=== PATIENT | female | born 1945 | race Caucasian/White ===

== ENCOUNTER → 2017-01-26 | Outpatient (CLI) | payer MEDICARE, OTHER ==
[~2017-01-26] VITALS: Ht 162.6 cm; Wt 113.4 kg
[~2017-01-26] MED LIST: BIOTIN PO; BIOTIN2500 MCG PO; CANDESARTAN-HC1 EAC1 PO; CARAFATE SU100 MG/ML PO; CARAFATE1 GM PO; CARVEDILOL6.25 MG PO; CHLORTHALIDONE25 MG PO; COREG 3.125M3.125 MG PO; ELIQUIS 5 MG TAB5 MG PO; ELIQUIS5 MG PO; FENOFIBRATE160 MG PO; FLINTSTONES1 EAC1 PO; FLINTSTONES1 EACH PO; GLUCOPHAGE 500500 MG PO; IMDUR ER TAB 3030 MG PO; IRBESARTAN300 MG PO; ISOSORBIDE DINI30 MG PO; KEFLEX500 MG PO; LIPITOR TAB 2020 MG PO; METFORMIN HCL500 M1 PO; MULTAQ400 MG PO; NEXIUM40 MG PO; NITROSTAT 0.40.4 MG SL; PERIDEX15 ML PO; PILOCARPINE HCL5 MG PO; PROTONIX 40 MG40 M1 PO; VIT D3 PO; VITAMIN D31000 UNI1 PO
== END ==
LOC: OPSV 13:40
DX: D50.9 Iron deficiency anemia, unspecified (principal)
CPT/HCPCS: 96365; J1756; J7050

== ENCOUNTER → 2017-02-02 | Outpatient (CLI) | payer MEDICARE, OTHER ==
[~2017-02-02] VITALS: Ht 162.6 cm; Wt 104.3 kg
== END ==
LOC: OPSV 13:42
DX: D50.9 Iron deficiency anemia, unspecified (principal)
CPT/HCPCS: 96365; J1756; J7050

== ENCOUNTER → 2017-03-02 | Outpatient (CLI) | payer MEDICARE, OTHER ==
[~2017-03-02] VITALS: Ht 162.6 cm; Wt 104.3 kg
== END ==
LOC: OPSV 13:37
DX: D50.9 Iron deficiency anemia, unspecified (principal)
CPT/HCPCS: 96365; J1756; J7050

== ENCOUNTER 2017-03-15 16:55 | Inpatient (IN) | payer MEDICARE, OTHER ==
[~2017-03-15] VITALS: Ht 165.1 cm; Wt 107.8 kg
[~2017-03-15 16:55] MED LIST changes: -CARAFATE SU100 MG/ML PO; -FLINTSTONES1 EACH PO; -KEFLEX500 MG PO; -LIPITOR TAB 2020 MG PO; -NITROSTAT 0.40.4 MG SL; -PROTONIX 40 MG40 M1 PO
[2017-03-15 19:13] LABS: HEMOGLOBIN 9.1 gm/dl (12.3-15.3); RED BLOOD COUNT 3.41 M/UL (4.00-5.10); WHITE BLOOD COUNT 4.5 K/UL (4.5-11.0)
[2017-03-15] MEDS ORDERED: BIOTIN2500 MCG PO (20:08)
[2017-03-15] MEDS ORDERED: CARAFATE SU100 MG/ML PO (20:09)
[2017-03-15] MEDS ORDERED: ELIQUIS5 MG PO (20:09)
[2017-03-15] MEDS ORDERED: FLINTSTONES1 EACH PO (20:11)
[2017-03-15] MEDS ORDERED: NITROSTAT 0.40.4 MG SL (20:13)
[2017-03-15] MEDS ORDERED: VITAMIN D31000 UNI1 PO (20:14)
[2017-03-15] MEDS ORDERED: IMDUR ER TAB 3030 MG PO (20:17)
[2017-03-16 03:22] LABS: HEMOGLOBIN 8.4 gm/dl (12.3-15.3); RED BLOOD COUNT 3.2 M/UL (4.00-5.10); WHITE BLOOD COUNT 4.4 K/UL (4.5-11.0)
[2017-03-17 04:52] LABS: HEMOGLOBIN 8.2 gm/dl (12.3-15.3); RED BLOOD COUNT 3.13 M/UL (4.00-5.10); WHITE BLOOD COUNT 4.1 K/UL (4.5-11.0)
[2017-03-18 04:54] LABS: HEMOGLOBIN 10.8 gm/dl (12.3-15.3); RED BLOOD COUNT 3.96 M/UL (4.00-5.10); WHITE BLOOD COUNT 5.7 K/UL (4.5-11.0)
[2017-03-18] MEDS ORDERED: KEFLEX500 MG PO (12:27)
[2017-03-18] MEDS ORDERED: PROTONIX 40 MG40 M1 PO (12:28)
[2017-03-18] MEDS ORDERED: LIPITOR TAB 2020 MG PO (12:29)
== END 2017-03-18 13:36 | disposition home or self-care (01) | DRG 377 ==
LOC: ZEROF 18:22 → MED SURG 4 18:22
PROVIDERS: Internal Medicine Gastroenterology; ADMIT Internal Medicine
PROC: 0DJ08ZZ Inspection of Upper Intestinal Tract, Via Natural or Artificial Opening Endoscopic (ICD-10-PCS; principal; 2017-03-16 18:30)
DX: K57.31 Diverticulosis of large intestine without perforation or abscess with bleeding (principal); I50.31 Acute diastolic (congestive) heart failure; D62 Acute posthemorrhagic anemia; T80.1XXA Vascular complications following infusion, transfusion and therapeutic injection, initial encounter; I48.91 Unspecified atrial fibrillation; K22.70 Barrett's esophagus without dysplasia; E78.5 Hyperlipidemia, unspecified; E55.9 Vitamin D deficiency, unspecified; J30.9 Allergic rhinitis, unspecified; K44.9 Diaphragmatic hernia without obstruction or gangrene; I25.10 Atherosclerotic heart disease of native coronary artery without angina pectoris; E11.65 Type 2 diabetes mellitus with hyperglycemia; E66.01 Morbid (severe) obesity due to excess calories; K59.09 Other constipation; I80.8 Phlebitis and thrombophlebitis of other sites; G89.29 Other chronic pain; R10.13 Epigastric pain; R10.11 Right upper quadrant pain; R10.31 Right lower quadrant pain; Z79.84 Long term (current) use of oral hypoglycemic drugs; Z79.899 Other long term (current) drug therapy; Y83.8 Other surgical procedures as the cause of abnormal reaction of the patient, or of later complication, without mention of misadventure at the time of the procedure; Z91.09 Other allergy status, other than to drugs and biological substances; Z87.891 Personal history of nicotine dependence; Z79.01 Long term (current) use of anticoagulants; Z68.39 Body mass index [BMI] 39.0-39.9, adult
CPT/HCPCS: 36415; 71010; 80048; 80053; 82270; 82272; 85025; 85027; 86850; 86900; 86901; 86920; C9113; J2250; J3010; J7030; J7040; J7050; P9016; Q9962; Q9963

== ENCOUNTER → 2017-03-30 | Outpatient (CLI) | payer MEDICARE, OTHER ==
[~2017-03-30] VITALS: Ht 162.6 cm; Wt 104.3 kg
[~2017-03-30] MED LIST changes: +CARAFATE SU100 MG/ML PO; +FLINTSTONES1 EACH PO; +KEFLEX500 MG PO; +LIPITOR TAB 2020 MG PO; +NITROSTAT 0.40.4 MG SL; +PROTONIX 40 MG40 M1 PO
== END ==
LOC: OPSV 12:58
DX: D50.9 Iron deficiency anemia, unspecified (principal)
CPT/HCPCS: 96365; J1756; J7050

== ENCOUNTER → 2017-05-04 | Outpatient (CLI) | payer MEDICARE, OTHER | LOC: OPSV 12:35 | DX: D50.9 Iron deficiency anemia, unspecified (principal) | CPT/HCPCS: 96365; J1756; J7050 ==

== ENCOUNTER → 2020-12-25 | Outpatient (CLI) | payer MEDICARE, OTHER ==
[~2020-12-25] VITALS: Ht 162.6 cm; Wt 99.3 kg
[~2020-12-25] MED LIST changes: +ATACAND32 MG PO; -CARVEDILOL6.25 MG PO; +MEGA BIOTIN10000 MCG PO; +ROBITUSSIN AC480 ML PO; +SYNTHROID25 MCG PO; +TESSALON PERLE100 MG PO; +VENTOLIN HFA 66.7 GM INH; +VITAMIN D250000 UNIT PO
== END ==
LOC: OPSV 12:39
DX: D50.9 Iron deficiency anemia, unspecified (principal); K90.9 Intestinal malabsorption, unspecified
CPT/HCPCS: 96365; J1756

== ENCOUNTER → 2021-01-03 | Outpatient (CLI) | payer MEDICARE, OTHER ==
[~2021-01-03] VITALS: Ht 162.6 cm; Wt 99.3 kg
== END ==
LOC: OPSV 12:00
DX: D50.9 Iron deficiency anemia, unspecified (principal); K90.9 Intestinal malabsorption, unspecified
CPT/HCPCS: 96365; J1756

== ENCOUNTER → 2021-01-20 | Outpatient (CLI) | payer MEDICARE, OTHER ==
[~2021-01-20] VITALS: Ht 162.6 cm; Wt 99.3 kg
== END ==
LOC: OPSV 01-10 12:00
DX: D50.9 Iron deficiency anemia, unspecified (principal); K90.9 Intestinal malabsorption, unspecified
CPT/HCPCS: 96365; J1756

== ENCOUNTER → 2021-01-29 | Outpatient (CLI) | payer MEDICARE, OTHER ==
[~2021-01-29] VITALS: Ht 162.6 cm; Wt 99.3 kg
== END ==
LOC: OPSV 01-27 12:00
DX: D50.9 Iron deficiency anemia, unspecified (principal); K90.9 Intestinal malabsorption, unspecified
CPT/HCPCS: 96365; J1756

== ENCOUNTER → 2021-02-14 | Outpatient (CLI) | payer MEDICARE, OTHER ==
[~2021-02-14] VITALS: Ht 162.6 cm; Wt 99.3 kg
== END ==
LOC: OPSV 02-07 11:00
DX: D50.9 Iron deficiency anemia, unspecified (principal); K90.9 Intestinal malabsorption, unspecified
CPT/HCPCS: 96365; J1756

== ENCOUNTER → 2021-02-21 | Outpatient (CLI) | payer MEDICARE, OTHER ==
[~2021-02-21] VITALS: Ht 162.6 cm; Wt 99.3 kg
== END ==
LOC: OPSV 10:33
DX: D50.9 Iron deficiency anemia, unspecified (principal); K90.9 Intestinal malabsorption, unspecified
CPT/HCPCS: 96365; J1756

== ENCOUNTER → 2021-02-27 | Outpatient (CLI) | payer MEDICARE, OTHER ==
[~2021-02-27] VITALS: Ht 162.6 cm; Wt 99.3 kg
== END ==
LOC: OPSV 11:56
DX: D50.9 Iron deficiency anemia, unspecified (principal); K90.9 Intestinal malabsorption, unspecified
CPT/HCPCS: 96365; J1756

== ENCOUNTER → 2021-03-13 | Outpatient (CLI) | payer MEDICARE, OTHER | LOC: OPSV 10:46 | DX: D50.9 Iron deficiency anemia, unspecified (principal); K90.9 Intestinal malabsorption, unspecified | CPT/HCPCS: 96365; J1756 ==

== ENCOUNTER → 2021-04-11 | Outpatient (CLI) | payer MEDICARE, OTHER ==
[~2021-04-11] VITALS: Ht 162.6 cm; Wt 99.3 kg
== END ==
LOC: OPSV 11:00
DX: D50.9 Iron deficiency anemia, unspecified (principal); K90.9 Intestinal malabsorption, unspecified
CPT/HCPCS: 96365; J1756

== ENCOUNTER → 2021-10-16 | Outpatient (CLI) | payer MEDICARE, OTHER | LOC: HEART 5 10-15 11:30 | DX: R42 Dizziness and giddiness (principal); R53.83 Other fatigue; I48.0 Paroxysmal atrial fibrillation ==

== ENCOUNTER → 2022-01-19 | Outpatient (CLI) | payer MEDICARE, OTHER ==
[~2022-01-19] VITALS: Ht 162.6 cm; Wt 98.4 kg
== END ==
LOC: EROP 11:46
DX: U07.1 COVID-19 (principal); Z23 Encounter for immunization; E11.9 Type 2 diabetes mellitus without complications; I10 Essential (primary) hypertension
CPT/HCPCS: M0247; Q0247

== ENCOUNTER → 2022-05-05 | Day surgery (SDC) | payer MEDICARE, OTHER ==
[~2022-05-05] MED LIST changes: +LEVOCETIRIZINE D5 MG PO; +NITROSTAT0.4 MG SL; +VITAMIN D350 MC3 PO
== END | disposition home or self-care (01) ==
LOC: OR 08:01
DX: D12.5 Benign neoplasm of sigmoid colon (principal); K57.30 Diverticulosis of large intestine without perforation or abscess without bleeding; K64.1 Second degree hemorrhoids; K25.9 Gastric ulcer, unspecified as acute or chronic, without hemorrhage or perforation; K44.9 Diaphragmatic hernia without obstruction or gangrene; K31.9 Disease of stomach and duodenum, unspecified; I10 Essential (primary) hypertension; I48.91 Unspecified atrial fibrillation; E78.5 Hyperlipidemia, unspecified; K21.00 Gastro-esophageal reflux disease with esophagitis, without bleeding; E11.9 Type 2 diabetes mellitus without complications; E03.9 Hypothyroidism, unspecified; E66.8 Other obesity; Z88.8 Allergy status to other drugs, medicaments and biological substances; Z79.01 Long term (current) use of anticoagulants; Z79.84 Long term (current) use of oral hypoglycemic drugs; Z79.899 Other long term (current) drug therapy; Z68.37 Body mass index [BMI] 37.0-37.9, adult
CPT/HCPCS: 82962; J2704; J7040

== ENCOUNTER 2022-06-22 17:04 | Observation (INO) | payer MEDICARE, OTHER ==
[~2022-06-22] VITALS: Ht 162.6 cm; Wt 98.9 kg
[~2022-06-22 17:04] MED LIST changes: +FLINTSTONES CO1 EACH PO; -FLINTSTONES1 EACH PO; +HARD NAILS2500 MCG PO; +ISOSORBIDE MONO30 MG PO; -MEGA BIOTIN10000 MCG PO; -METFORMIN HCL500 M1 PO; +METFORMIN HCL500 MG PO
[2022-06-22 18:23] LABS: HEMOGLOBIN 12.7 gm/dl (12.3-15.3); RED BLOOD COUNT 4.13 M/UL (4.00-5.10); WHITE BLOOD COUNT 10.4 K/UL (4.5-11.0)
[2022-06-22 18:50] LABS: BUN/CREATININE RATIO 37 (0-10)
[2022-06-23 05:25] LABS: HEMOGLOBIN 12.4 gm/dl (12.3-15.3); RED BLOOD COUNT 4.06 M/UL (4.00-5.10)
[2022-06-23 05:27] LABS: WHITE BLOOD COUNT 7.7 K/UL (4.5-11.0)
[2022-06-23] MEDS ORDERED: ELIQUIS5 MG PO (09:26)
[2022-06-23] MEDS ORDERED: CHLORTHALIDONE25 MG PO (09:27)
[2022-06-23] MEDS ORDERED: BENICAR40 MG PO (09:30)
--- NOTE | 2022-06-23 15:07 | NUR ---
PATIENT HAS APPOINTMENT WITH DR. CABRERA AND DR. SZYMANSKI INSTRUCTED TO KEEP BOTH APPOINTMENTS. PER DR. CABRERA CONTINUE ALL HOME MEDS. E.R. NURSE NGOZI SPOKE WITH DR. SZYMANSKI. OKAY TO DISCHARGE NO MED CHANGES NEEDED. PATIENT AND FAMILY VERBALIZED UNDERSTANDING. JUANIS ORTIZ R.N.
== END 2022-06-23 14:35 | disposition home or self-care (01) ==
LOC: ER1 17:04 → CDU 21:34
PROVIDERS: Physician Assistant; ADMIT Internal Medicine
DX: I48.19 Other persistent atrial fibrillation (principal); I48.0 Paroxysmal atrial fibrillation; I11.0 Hypertensive heart disease with heart failure; I50.32 Chronic diastolic (congestive) heart failure; I25.10 Atherosclerotic heart disease of native coronary artery without angina pectoris; I49.5 Sick sinus syndrome; I65.29 Occlusion and stenosis of unspecified carotid artery; M17.10 Unilateral primary osteoarthritis, unspecified knee; I34.0 Nonrheumatic mitral (valve) insufficiency; I27.20 Pulmonary hypertension, unspecified; Z79.01 Long term (current) use of anticoagulants; Z79.84 Long term (current) use of oral hypoglycemic drugs; Z79.899 Other long term (current) drug therapy
CPT/HCPCS: 71045; 80048; 80053; 82550; 82553; 84439; 84443; 84484; 85025; 93005; 96374; 96375; 99285; G0378; J1160; J1200; J2250; J2270; J7040

== ENCOUNTER 2022-06-29 19:30 | Inpatient (IN) | payer MEDICARE, OTHER ==
[~2022-06-29] VITALS: Ht 162.6 cm; Wt 98.6 kg
[~2022-06-29 19:30] MED LIST changes: +BENICAR40 MG PO; -HARD NAILS2500 MCG PO
[2022-06-29 22:19] LABS: HEMOGLOBIN 12.9 gm/dl (12.3-15.3); RED BLOOD COUNT 4.24 M/UL (4.00-5.10); WHITE BLOOD COUNT 7.6 K/UL (4.5-11.0)
[2022-06-30] MEDS ORDERED: HARD NAILS2500 MCG PO (20:08)
[2022-07-01 02:20] LABS: HEMOGLOBIN 12.4 gm/dl (12.3-15.3); RED BLOOD COUNT 4.06 M/UL (4.00-5.10); WHITE BLOOD COUNT 6.7 K/UL (4.5-11.0)
--- NOTE | 2022-07-01 16:47 | NUR ---
1040 PT WAS PREPPED FOR CARDIOVERSION ORDERED BY DR. FLETCHER. CONSENT WAS PREVIOSULY OBTAINED. DEFIBRILLATOR PADS ATTATCHED TO PATIENT IN BED AND PROCEDURE EXPLAINED. WITH DR. FLETCHER AT [facility] VERSED AND FENTANYL ADMINISTERED PER MD ORDER AND NS INFUSING AT 75 MLS/HR. MD ADMINISTERED SINGLE SYNCRONIZED SHOCK (SEE MD NOTE) AND PT CONVERTED TO SINUS RHYTHM. PT TOLERATED WELL AND IS STABLE AT THIS TIME.
[2022-07-02 03:02] LABS: HEMOGLOBIN 11.8 gm/dl (12.3-15.3); RED BLOOD COUNT 3.86 M/UL (4.00-5.10); WHITE BLOOD COUNT 6.8 K/UL (4.5-11.0)
[2022-07-02] MEDS ORDERED: AMIODARONE HCL200 MG PO (09:43)
== END 2022-07-02 12:02 | disposition home or self-care (01) | DRG 309 ==
LOC: ER1 19:30 → PROG CARE 06-30 00:20 → CDU 06-30 00:20 → PROG CARE 06-30 02:16
PROVIDERS: Emergency Medicine; ADMIT Internal Medicine
PROC: B24BZZZ Ultrasonography of Heart with Aorta (ICD-10-PCS; 2022-06-30)
PROC: 5A2204Z Restoration of Cardiac Rhythm, Single (ICD-10-PCS; principal; 2022-07-01)
DX: I48.0 Paroxysmal atrial fibrillation (principal); I13.0 Hypertensive heart and chronic kidney disease with heart failure and stage 1 through stage 4 chronic kidney disease, or unspecified chronic kidney disease; I50.32 Chronic diastolic (congestive) heart failure; N17.9 Acute kidney failure, unspecified; E11.9 Type 2 diabetes mellitus without complications; E66.9 Obesity, unspecified; E03.9 Hypothyroidism, unspecified; I08.1 Rheumatic disorders of both mitral and tricuspid valves; K76.0 Fatty (change of) liver, not elsewhere classified; N18.2 Chronic kidney disease, stage 2 (mild); M17.9 Osteoarthritis of knee, unspecified; E78.5 Hyperlipidemia, unspecified; I25.10 Atherosclerotic heart disease of native coronary artery without angina pectoris; Z95.1 Presence of aortocoronary bypass graft; Z82.49 Family history of ischemic heart disease and other diseases of the circulatory system; Z98.890 Other specified postprocedural states; Z83.3 Family history of diabetes mellitus; Z79.899 Other long term (current) drug therapy; Z68.37 Body mass index [BMI] 37.0-37.9, adult
CPT/HCPCS: ECHO; 36415; 71045; 80048; 80053; 82550; 82553; 83880; 84439; 84443; 84484; 85025; 85027; 93005; 93306; 96374; 99285; J0461; J2250; J3010

== ENCOUNTER → 2022-07-16 | Outpatient (CLI) | payer MEDICARE, OTHER ==
[~2022-07-16] MED LIST changes: +AMIODARONE HCL200 MG PO; +HARD NAILS2500 MCG PO
== END ==
LOC: HEART 5 09:18
DX: R06.02 Shortness of breath (principal); Z79.899 Other long term (current) drug therapy
CPT/HCPCS: 94060; 94729